=== PATIENT | male | born 1955 | race Caucasian/White ===

== ENCOUNTER 2016-10-19 23:38 | Emergency (ER) | payer SELFPAY ==
[~2016-10-19] VITALS: Ht 182.9 cm; Wt 81.6 kg
[2016-10-19] MEDS ORDERED: CEPHALEXIN500 M1 ORAL (23:46)
--- NOTE | 2016-10-19 23:46 | Emergency Room Report ---
History of Present Illness General Source: Patient, EMS Present Illness HPI Patient is 61-year-old male brought in by EMS after increased altered level consciousness. Patient had recent fall from standing. The patient had a left eyebrow laceration unknown exact time of injury. The patient reportedly been seen recently by EMS. Allergies: Coded Allergies: No Known Allergies (Unverified , 10/19/16) Patient History Past Medical History: see triage record Reviewed Nursing Documentation: PMH: Agreed, PSxH: Agreed Review of Systems All Other Systems: limited - by mental status Physical Exam General Appearance: mild distress, thin Eyes: bilateral eye other - left eyebrow laceration ENT: hearing grossly normal Neck: full range of motion, supple Respiratory: lungs clear Cardiovascular #1: normal peripheral pulses, regular rate, rhythm Gastrointestinal: normal bowel sounds Neurologic: motor weakness - bilateral lower extremity Skin: hematoma, laceration - left eyebrow Medical Decision Making Diagnostic Impression: Primary Impression: Laceration Additional Impression: Alcohol abuse ER Course Patient presented after fall. Differential diagnosis included was not limited to neck fracture, CVA, close head injury, syncopal episode, basilar ischemia. Because of complexity of patient's case laboratory testing and imaging studies were ordered.The patient refused the CT imaging. Patient was noted noted be intoxicated. He was observed observed in the emergency department and had gradual improvement in his mental status. A laceration appear to be old and was irrigated and closed with Steri-Strips. The patient is advised to follow up with primary care doctor in 1-2 days. Patient is advised to return if any worsening condition or if any changes in status that are concerning. Status: improved Disposition: HOME, SELF-CARE Condition: Stable Otoniel Parikh Oct 19, 2016 23:46
[2016-10-19 23:50] VITALS: BP 117/71
[2016-10-20 01:50] VITALS: BP 125/73
[2016-10-20 03:50] VITALS: BP 125/73
[2016-10-20 04:45] VITALS: BP 125/73
== END 2016-10-20 04:45 | disposition home or self-care (01) ==
LOC: EDBD 23:38 → EMR 23:54
DX: S01.112A Laceration without foreign body of left eyelid and periocular area, initial encounter (principal); W19.XXXA Unspecified fall, initial encounter; Y92.9 Unspecified place or not applicable; F10.10 Alcohol abuse, uncomplicated
CPT/HCPCS: 99284